=== PATIENT | male | born 1985 | race Caucasian/White ===

== ENCOUNTER → 2016-07-09 | Outpatient (CLI) | payer BC ==
--- NOTE | 2016-07-10 08:46 | DI ---
Indication: ITS.REASON: M25.561 PAIN IN RIGHT KNEE PROCEDURE: MRI KNEE RIGHT W/O CONTRAST: Encounter: Initial Comparison: None Technique: Multiplanar multisequence MR imaging of the right knee was performed without contrast. Findings: The anterior horn of the lateral meniscus is irregular near the insertion and possibly torn. There is a horizontal tear of the posterior root of the lateral meniscus. Medial meniscus shows complex tearing of the posterior horn and root with horizontal and vertical components. Prior ACL repair. The graft appears disrupted with no definite intact fibers visualized. The PCL is intact. The MCL and lateral collateral ligament complex are intact. The extensor mechanism is normal. No acute fracture. Bone marrow edema in the central weightbearing surface of the lateral femoral condyle. There is also bone marrow edema in the posterior medial tibial plateau. No acute fracture seen. Cartilage of the medial compartment shows areas of partial-thickness loss with small osteophytes. Lateral compartment cartilage shows focal full-thickness loss with subchondral edema and small osteophytes. Patellofemoral compartment cartilage is maintained. No joint effusion or Hall's cyst. Muscular signal intensity is within normal limits. Impression: 1. Rupture of the ACL graft. 2. Medial and lateral meniscal tears. 3. 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 .
== END ==
LOC: IMA 18:46
PROVIDERS: ATTEND Family Medicine
DX: S83.511A Sprain of anterior cruciate ligament of right knee, initial encounter (principal); S83.241A Other tear of medial meniscus, current injury, right knee, initial encounter; S83.281A Other tear of lateral meniscus, current injury, right knee, initial encounter; X58.XXXA Exposure to other specified factors, initial encounter; Y93.9 Activity, unspecified; Y92.9 Unspecified place or not applicable; Y99.9 Unspecified external cause status